=== PATIENT | female | born 1985 | race Caucasian/White ===

== ENCOUNTER 2024-05-16 06:33 | Day surgery (SDC) | payer OTHER ==
[~2024-05-16] VITALS: Ht 167.6 cm; Wt 80.9 kg
[~2024-05-16 06:33] MED LIST: BACL1TAB9 PO; BUPR-597 PO; DULO1CAP5 PO; DULO1CAP6 PO; GABA-1490 PO; ONE1TAB3 PO; SENN-85 PO; SERT-141 PO; TOPA1TAB PO; ZOLO100T PO
[2024-05-16] MEDS ORDERED: propofoL 200 MG/20 ML VIAL As Ordered ONE (06:48)
[2024-05-16] MEDS ORDERED: LIDOCAINE 2% 100MG/5ML SDV (FOR ANES.) As Ordered ONE (06:48)
[2024-05-16] MEDS ORDERED: GLYCOPYRROLATE INJ 0.2 MG/ML 2 ML VIAL As Ordered ONE (07:03)
[2024-05-16 07:53] VITALS: TEMP 97.8
[2024-05-16 08:09] VITALS: BP 115/66; O2SAT 99
== END 2024-05-16 08:15 | disposition home or self-care (01) ==
LOC: M OPP 06:33
PROVIDERS: ATTEND Internal Medicine Gastroenterology
DX: K64.8 Other hemorrhoids (principal); R10.84 Generalized abdominal pain; K59.00 Constipation, unspecified; Z88.8 Allergy status to other drugs, medicaments and biological substances; Z91.040 Latex allergy status; Z79.899 Other long term (current) drug therapy
CPT/HCPCS: 45378; J1596